=== PATIENT | male | born 1950 | race Caucasian/White ===

== ENCOUNTER → 2023-04-01 | Outpatient (CLI) | payer MEDICARE ==
--- NOTE | 2023-04-01 19:18 | MR ---
EXAMINATION TYPE: MR knee RT wo con DATE OF EXAM: 04/01/2023 COMPARISON: None HISTORY: Right knee pain, Hx of a fall . TECHNIQUE: Multiplanar, multisequence imaging of the right knee is performed without IV contrast. FINDINGS: The osseous structures are intact and there is no bone contusion or fracture. There is marked thickening and diffuse abnormal signal intensity in the posterior cruciate ligament c onsistent with stretching and tear of the posterior cruciate ligament. There are intact fibers. The anterior cruciate ligament is intact. The medial and collateral ligaments are intact. There is a tear posterior horn of the lateral meniscus extending to the inferior surface. There is a complete tear with root attachment of the medial meniscus and displacement medially. 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 There is moderate to marked osteoart hritic changes lateral compartment and patellofemoral compartment where there is subchondral bone constanza nges, marked thinning of the articular cartilage and hypertrophic spurring. There is a full-thickness defect of the patellar cartilage within the lateral facet. There is a small joint effusion and a large Figueroa's cyst. There is marked Pes Anserine bursitis. IMPRESSION: 1. Moderate to marked osteophytic change of all 3 compartments of the knee described. 2. Tears of both the medial and lateral menisci as described above. 3. Tear and stretching of the posterior cruciate ligament with intact fibers. 4. Marked Pes Anserine bursitis
== END | disposition home or self-care (01) ==
LOC: RADMRIMAIN 14:13
PROVIDERS: ATTEND Family Medicine
DX: S83.241A Other tear of medial meniscus, current injury, right knee, initial encounter (principal); S83.281A Other tear of lateral meniscus, current injury, right knee, initial encounter; M71.561 Other bursitis, not elsewhere classified, right knee; X58.XXXA Exposure to other specified factors, initial encounter